=== PATIENT | male | born 1990 | race Caucasian/White ===

== ENCOUNTER 2021-04-18 10:44 | Emergency (ER) | payer OTHER ==
[~2021-04-18] VITALS: Ht 177.8 cm; Wt 103.9 kg
[2021-04-18 10:48] VITALS: BP 146/82
--- NOTE | 2021-04-18 10:48 | NUR ---
Pt taken to bed 11.
--- NOTE | 2021-04-18 11:01 | NUR ---
Patient being evaluated by Dr. Contreras at bedside.
[2021-04-18] MEDS ORDERED: LIDOCAINE MPF 1% 10 MG/ML VIAL INJ ONE (11:05)
--- NOTE | 2021-04-18 11:11 | NUR ---
30/M presents to ED with c/o back pain. Patient states he has had lower back pain radiating to his left flank x2 months. Patient denies trauma or injury, states he has only taken Tylenol this morning with mild relief. Patient denies chest pain, abdominal pain, dysuria or hematuria. Patient able to ambulate without assistance, but states pain worsens with movement. 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
[2021-04-18] MEDS ORDERED: NAPR-1704 PO (11:52)
[2021-04-18 11:58] VITALS: BP 146/82
--- NOTE | 2021-04-18 11:59 | NUR ---
Patient discharged with v/s stable. Written and verbal after care instructions given and explained. Patient alert, oriented and verbalized understanding of instructions. Ambulatory with to car. All questions addressed prior to discharge. ID band removed. Patient advised to follow up with PMD. Rx of NAPROXEN given. Patient educated on indication of medication including possible reaction and side effects. Opportunity to ask questions provided and answered.
== END 2021-04-18 11:59 | disposition home or self-care (01) ==
LOC: MED 10:44
DX: M62.830 Muscle spasm of back (principal); Z79.899 Other long term (current) drug therapy; Z90.49 Acquired absence of other specified parts of digestive tract
CPT/HCPCS: 99282; J2001